=== PATIENT | male | born 1985 | race Caucasian/White ===

== ENCOUNTER 2024-09-16 17:51 | Emergency (ER) | payer BC, SELFPAY ==
[2024-09-16 17:53] VITALS: BP 173/97; PULSE 123; RESP 16; TEMP 36.8; O2SAT 98; BMI 29.5
[2024-09-16 18:16] VITALS: PULSE 109; RESP 16; O2SAT 100
[2024-09-16 18:20] LABS: Absolute Neutrophil Count 4.4 X10^3/uL (2.0-7.7); Basophil# 0.05 X10^3/uL; Basophil% 0.8 % (0-1); Eosinophil# 0.07 X10^3/uL; Eosinophils% 1.1 % (0-5); Hematocrit 48.6 % (40-54); Hemoglobin 16.6 g/dL (13.0-16.5); Lymphocyte % 20.1 % (19-41); Mean Corp Hgb Conc 34.2 g/dL (32-36); Mean Corpuscular Volume 84.8 fL (80-94); Mean Platelet Vol. 10.4 fl (6.2-12.0); Monocyte# 0.63 X10^3/uL; Monocyte% 9.7 % (0-10); NRBC Flagged by Analyzer 0 % (0-5); Neutrophil # 4.38 X10^3/uL (2.7-7.7); Neutrophil % 67.7 % (47-70); Platelet Count 245 K/mm3 (150-450); RBC Distribution Width SD 39.7 fl (35.1-43.9); Red Blood Count 5.73 M/mm3 (4.6-6.2); White Blood Count 6.5 K/mm3 (4.4-11.0)
[2024-09-16 18:46] LABS: Anion Gap 7 (5-15); BUN 11 mg/dL (7-18); BUN/Creat Ratio 9.6 RATIO (10-20); Calcium,Total 9.6 mg/dL (8.5-10.1); Chloride 107 mmol/L (98-107); Creatinine, Serum 1.15 mg/dL (0.70-1.30); EST Glomerular Filtration Rate 74 mL/min (>60); Est Glom Filt Rate - Afr Amer 90 mL/min (>60); Estimated Creatinine Clearance 94.06 ml/min; Glucose 108 mg/dL (74-106); Potassium 3.5 mmol/L (3.5-5.1); Sodium Level 140 mmol/L (136-145); Troponin-I HS (w/2H Reflex) 4 pg/mL (3.0-78.0)
[2024-09-16 19:00] VITALS: BP 145/91; PULSE 89; RESP 17; O2SAT 100
[2024-09-16 19:22] LABS: BNP,B-Type NATRIURETIC PEPTIDE 9.1 pg/mL (0-100)
[2024-09-16 19:29] LABS: D-Dimer Quantitative (DVT/PE) 0.27 FEU/ug/m (0.27-0.49)
[2024-09-16 20:00] VITALS: BP 125/82; PULSE 78; RESP 16; O2SAT 98
[2024-09-16 20:02] LABS: Bacteria 0 SEEN /hpf (None Seen); Mucous, Urine 0 SEEN /hpf (<or=2+); Red Blood Cells-Urine 0 SEEN /hpf (0-5); Squamous Epithelial Cells - UA 0 SEEN /hpf (0-5)
[2024-09-16 20:04] LABS: Color, Urine Yellow (Yellow); Glucose, Dipstick Normal (Normal); Ketone-Dipstick Negative (Negative); Leukocyte Esterase-Dipstick 100 /ul (Negative); Nitrite-Dipstick Negative (Negative); Occult Blood-Urine Negative /ul (Negative); Protein-Dipstick Negative (Negative); Urine Bilirubin Dipstick Negative (Negative); Urine Clarity Clear (Clear); Urine Urobilinogen Normal (Normal)
[2024-09-16 20:05] LABS: Bedside Glucose 95 mg/dL (74-106)
[2024-09-16 20:17] LABS: Reflex Troponin-HS? (from REC) Y
[2024-09-16 20:27] LABS: White Blood Cells 0-5 SEEN /hpf (0-5)
[2024-09-16 20:56] LABS: Troponin-I HS 4 pg/mL (3.0-78.0)
[2024-09-16 21:00] VITALS: BP 143/85; PULSE 86; RESP 15; O2SAT 98
[2024-09-16 22:02] VITALS: BP 143/86; PULSE 86; RESP 19; TEMP 36.6; O2SAT 99
== END 2024-09-16 22:02 | disposition home or self-care (01) ==
PROVIDERS: Emergency Provider Surgery; Visit Provider Surgery
DX: R07.89 Other chest pain (principal); I10 Essential (primary) hypertension; R00.2 Palpitations; R06.02 Shortness of breath; R35.0 Frequency of micturition; F17.290 Nicotine dependence, other tobacco product, uncomplicated
CPT/HCPCS: 71045; 80048; 81001; 82962; 83880; 84484; 85025; 85379; 87631; 93005; 99284; A4216